=== PATIENT | female | born 1955 | race Caucasian/White ===

== ENCOUNTER 2025-01-31 07:56 | Day surgery (SDC) | payer MEDICARE, OTHER ==
[2025-01-23 10:54] LABS: Absolute Basophils 0.1 K/uL (0-0.5); Absolute Eosinophils 0.1 K/uL (0-0.5); Absolute Lymphocytes (CBC) 1.5 K/uL (0.7-4.9); Absolute Monocytes 0.9 K/uL (0.1-1.3); Absolute Neutrophil 5.4 K/uL (1.8-8.0); Basophils % 0.9 % (0-1.3); Eosinophils % 1.4 % (0-4.4); Hematocrit 41.1 % (36.0-45.0); Hemoglobin 14.4 g/dL (12.0-15.0); Lymphocytes % 18.4 % (15.3-44.8); MCH 30.7 pg (27.0-35.0); MCV 87.7 fL (80-100); MPV 8.5 fL (7.6-11.3); Monocytes % 11.8 % (3.3-12.3); Neutrophils % 67.5 % (41.7-73.7); Platelets 243 thou/uL (152-406); RBC Red Blood Cell Count 4.69 M/uL (3.86-4.86)
[2025-01-23 11:15] LABS: Anion Gap 8.7 mEq/L (5.0-15.0); Potassium 3.7 mEq/L (3.5-5.1)
--- NOTE | 2025-01-27 11:35 | EKG ---
Test Date: 2025-01-23 Test Time: 10:31:59 [employer]: SONYA MEASUREMENT RESULTS: Intervals: Rate: 69 ND: 158 QRSD: 82 QT: 416 QTc: 445 [place]: P: 70 ND: 158 QRS: 67 T: 50 INTERPRETIVE STATEMENTS: Normal sinus rhythm Possible Left atrial enlargement Borderline ECG Compared to ECG 10/10/2000 10:19:00 Myocardial infarct finding no longer present Electronically Signed On 01-27-25 11:24:24 CDT by Francisco Gustafson
[2025-01-31] MEDS: Ringers Lactate 1,000 ML IV ONE (08:53)
[2025-01-31] MEDS: CEFAZOLIN SODIUM 1 GM/VIAL ONE (08:54)
[2025-01-31] MEDS ORDERED: propofoL 200 MG/20 ML VIAL IV ONE (09:09)
[2025-01-31] MEDS ORDERED: ONDANSETRON 4 MG/2 ML VIAL ONE (09:09)
[2025-01-31] MEDS ORDERED: FENTANYL CITR 100 MCG/2 ML ONE (09:09)
[2025-01-31] MEDS ORDERED: LIDOCAINE 2% MPF 5 ML VIAL ONE (09:09)
[2025-01-31] MEDS ORDERED: MIDAZOLAM HCL 2 MG/2 ML INJ ONE (09:28)
[2025-01-31] MEDS ORDERED: dexAMETHasone 10 MG/ML VIAL ONE (09:41)
[2025-01-31] MEDS ORDERED: EPHEDRINE SULF 50 MG/ML VIAL ONE (09:43)
--- NOTE | 2025-01-31 10:25 | OP ---
Date of Procedure: 01/31/2025 Surgeon: Paolo Gong MD Preoperative Diagnosis: Right carpal tunnel syndrome. Postoperative Diagnosis: Right carpal tunnel syndrome. Procedure: Right open carpal tunnel release. Estimated Blood Loss: Less than 3 cc. Complications: There were no complications. Specimens: No pathology specimens sent. Indications For Operation: Ms. Mclean is a patient who is complaining of numbness in the first 3 d igits of her hand. She does have NCVs, which demonstrate carpal tunnel syndrome. Risks, benefits, a nd alternatives of different methods of treating this have been discussed with the patient. She opts for open carpal tunnel release and all the risks associated with that were again detailed. She stat es she understands things as presented and wishes to proceed. Description Of Procedure: The patient was taken to the operating room, placed in supine position. G eneral anesthesia was easily obtained by Anesthesia staff. Following this, a well-padded tourniquet was placed on superior right arm. Right upper extremity was then prepped and draped in usual sterile fashion for the procedure. The arm was then elevated, but not exsanguinated and tourniquet was rais ed. Following this, a standard incision which paralleled the thenar crease with slight ulnar deviati on of the most distal wrist crease was then taken down carefully through skin only. Meticulous hemos tasis being maintained using bipolar electrocautery. This leads down to the palmar fascia which was divided longitudinally. Any obstructions of the transverse carpal ligament were gently swept to the side and a small bettye was made in the transverse carpal ligament. This allowed for visualization of underlying carpal tunnel structures and this incision was then extended from proximally to distally u ntil there were no constricting bands. It was then extended distally to proximally until there were no constricting bands. The median nerve was then examined and it was found to be in continuity. Mando rniquet was dropped and skin was closed using interrupted nylon sutures. The patient was then placed in a very well-padded sterile dressing, awakened, taken to recovery in good condition. No complicat ions. SE/MODL Voice ID: [id number] Report ID: [id number]
[2025-01-31] MEDS: HYDROMORPHONE HCL 1 MG/ML INJ ONE (10:27)
[2025-01-31 10:39] VITALS: O2SAT 99
[2025-01-31 14:30] VITALS: BP 144/59; TEMP 97
== END 2025-01-31 11:45 | disposition home or self-care (01) ==
LOC: OR 07:56
PROVIDERS: ATTEND Orthopaedic Surgery
PROC: 01N50ZZ Release Median Nerve, Open Approach (ICD-10-PCS; principal; 2025-01-31 09:00)
DX: G56.01 Carpal tunnel syndrome, right upper limb (principal)
CPT/HCPCS: 93005; 85025; 80048; 36415; 64721; J2704; J2003; J2250; J3010; J1100; J1171; J2405; J7120; J0690